=== PATIENT | female | born 1970 | race Caucasian/White ===

== ENCOUNTER 2016-02-26 10:42 | Emergency (ER) | payer OTHER ==
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
[2016-02-26] MEDS ORDERED: TORAdol 30 mg Injection IV ONE (11:01)
[2016-02-26] MEDS ORDERED: MORPHINE SULFATE 2 MG INJ IV ONE (11:01)
[2016-02-26] MEDS ORDERED: TORAdol 30 mg Injection ONE (11:05)
[2016-02-26] MEDS ORDERED: MORPHINE SULFATE 2 MG INJ ONE (11:05)
[2016-02-26 11:08] LABS: Collection Type VOID
[2016-02-26 11:11] LABS: COMPLETE URINE MICROSCOPIC? YES
[2016-02-26 11:25] LABS: Bacteria RARE /HPF (NEGATIVE); Epithelial Cells RARE /HPF (FEW)
[2016-02-26 11:26] LABS: BASOPHIL % 0.3 % (0.0-0.4); Eosinophil % 3.9 % (0.00-5.0); Granulocytes % 60.8 % (36.0-66.0); Lymphocytes % 28.1 % (24.0-44.0); Mean Cell Volume 91.5 fl (78-100); Mean Corpuscular Hemoglobin 30.5 pg (26-32); Mean Platelet Volume 12.1 fl (6-9.5); Monocytes % 6.9 % (0.0-12.0); Platelet Count 247 K/mm3 (150-450); Red Blood Count 4.82 M/mm3 (4.1-5.4); Red Cell Distribution Width 13.8 % (11.5-14.0); White Blood Count 9.2 K/mm3 (4.0-10.5)
[2016-02-26 11:27] LABS: Carbon Dioxide 30.2 mEq/L (21-32); Potassium 4.3 mEq/L (3.5-5.1)
[2016-02-26 12:10] VITALS: BP 111/75; PULSE 75; O2SAT 98
== END 2016-02-26 12:10 | disposition home or self-care (01) ==
LOC: ED 10:42
DX: M54.5 Low back pain (principal)
CPT/HCPCS: 36000; 36415; 80048; 80307; 81000; 85025; 96374; 96375; 99283; J1885; J2270